=== PATIENT | female | born 1995 | race Two or more races ===

== ENCOUNTER 2021-08-08 12:06 | Day surgery (SDC) | payer OTHER ==
[2021-08-06 11:04] LABS: Basophils # (auto) 0 10 ^3/uL (0-0.2); Basophils % (auto) 0.5 % (0.0-2.0); Eosinophils # (auto) 0.1 10 ^3/uL (0-0.8); Eosinophils % (auto) 2.3 % (0.0-7.0); Hematocrit 39.4 % (36.0-46.0); Hemoglobin 13.2 g/dL (12.2-16.2); Lymphocytes # (auto) 1.8 10 ^3/uL (0.4-5.4); Lymphocytes % (auto) 27.6 % (10.0-50.0); Mean Corpuscular Hemoglobin 28.9 pg (28.0-32.0); Mean Corpuscular Hgb Conc. 33.5 g/dL (32.0-36.0); Mean Corpuscular Volume 86.1 fL (80.0-100.0); Monocytes # (auto) 0.4 10 ^3/uL (0-1.3); Monocytes % (auto) 5.5 % (0.0-12.0); Neutrophils # (auto) 4.2 10 ^3/uL (1.6-8.6); Neutrophils % (auto) 64.1 % (37.0-80.0); Nucleated Red Blood Cells % 0.1 %; Red Blood Cells 4.58 10^6/uL (4.0-5.20); White Blood Cell 6.5 10^3/uL (4.4-10.8)
[2021-08-06 11:16] LABS: INR 1.1 (0.9-1.15); Partial Thromboplastin Time 28.4 sec (23.6-33.0)
[2021-08-06 11:27] LABS: Potassium 3.9 mmol/L (3.5-5.1)
[2021-08-06 11:32] LABS: Urine Blood Normal /uL (Negative); Urine Specific Gravity 1.009 (1.001-1.035)
[2021-08-06 11:34] LABS: Albumin 4.1 g/dL (3.4-5.0); BUN/Creatinine Ratio 18.7; Bilirubin, Total 0.6 mg/dL (0.2-1.0)
[2021-08-06 11:44] LABS: Urine Bacteria Few /hpf (None Seen); Urine WBC None seen /hpf (0 - 5)
[~2021-08-08] VITALS: Ht 167.6 cm; Wt 61.7 kg
[~2021-08-08 12:06] MED LIST: CETI1TAB36 PO; DICY10CA PO; ETON1IMP SC
[2021-08-08] MEDS ORDERED: MIDAZOLAM HCL 2MG/2ML 2ml VIAL (1mg/ml) ONE (12:58)
[2021-08-08] MEDS ORDERED: fentaNYL CITRATE 100 MCG/2 ML VL ONE (12:58)
[2021-08-08] MEDS ORDERED: PROPOFOL 10 MG/ML 20 ML IV ONE (13:43)
[2021-08-08] MEDS ORDERED: ONDANSETRON HCL 4 MG/2 ML VIAL ONE (13:44)
[2021-08-08] MEDS ORDERED: ONDANSETRON HCL 4 MG/2 ML VIAL IV PRN (14:00)
[2021-08-08 14:20] VITALS: BP 121/76
== END 2021-08-08 14:20 | disposition home or self-care (01) ==
LOC: GI 12:06
PROVIDERS: ATTEND Internal Medicine Gastroenterology
DX: R19.4 Change in bowel habit (principal); K21.00 Gastro-esophageal reflux disease with esophagitis, without bleeding; K22.10 Ulcer of esophagus without bleeding; K44.9 Diaphragmatic hernia without obstruction or gangrene; K29.90 Gastroduodenitis, unspecified, without bleeding; K51.20 Ulcerative (chronic) proctitis without complications; K57.30 Diverticulosis of large intestine without perforation or abscess without bleeding; K63.89 Other specified diseases of intestine; K29.50 Unspecified chronic gastritis without bleeding; K62.89 Other specified diseases of anus and rectum; Z20.822 Contact with and (suspected) exposure to COVID-19
CPT/HCPCS: 36415; 43239; 45380; 80053; 81001; 81025; 84702; 85025; 85610; 85730; 88305; 88342; J2250; J2405; J2704; J3010; J7030; U0003; 99153; G0500